=== PATIENT | female | born 1945 | race Asian ===

== ENCOUNTER 2022-07-14 10:03 | Observation (INO) | payer OTHER ==
[~2022-07-14] VITALS: Ht 157.5 cm; Wt 48.7 kg
[2022-07-14] MEDS ORDERED: AMAN100T PO (10:12)
[2022-07-14] MEDS ORDERED: ECOT81TA5 PO (10:12)
[2022-07-14] MEDS ORDERED: [UNRECOGNIZED DRUG - OTHER] (10:12)
[2022-07-14] MEDS ORDERED: ATOR1TAB19 PO (10:12)
[2022-07-14] MEDS ORDERED: NS 1,000 ML IV ONE (10:25)
[2022-07-14 10:59] LABS: VENOUS BASE EXCESS 0.6 (-2.0-2.0); VENOUS HCO3 25.4 MEQ/L (23.0-27.0); VENOUS O2 SATURATION 80.7 % (60.0-80.0); VENOUS PARTIAL PRESSURE CO2 41.6 mmHg (38.0-50.0); VENOUS PARTIAL PRESSURE O2 46.4 mmHg (30.0-50.0); VENOUS PH 7.404 UNITS (7.330-7.430); VENOUS STANDARD HCO3 24.6 MEQ/L; VENOUS TOTAL CO2 26.7 MEQ/L (24.0-28.0)
[2022-07-14 11:23] LABS: HEMOGLOBIN 13.9 g/dl (12.0-15.5); MEAN CORPUSCULAR HEMOGLOBIN 32.5 pg (27.0-33.0); MEAN CORPUSCULAR HGB CONC 33.9 g/dl (32.0-36.5); MEAN CORPUSCULAR VOLUME 95.8 fl (80.0-96.0); PLATELET COUNT, AUTOMATED 177 10^3/uL (150-450); RED BLOOD COUNT 4.28 10^6/uL (4.00-5.40); WHITE BLOOD COUNT 5.5 10^3/uL (4.0-10.0)
[2022-07-14] MEDS ORDERED: SERO1TAB3 PO (11:26)
[2022-07-14 11:36] LABS: OSMOLALITY SERUM 279 MOSM/KG (280-301)
[2022-07-14 11:40] LABS: THYROID STIMULATING HORMONE 1.622 uIU/ML (0.55-4.78)
[2022-07-14 11:54] LABS: RSV AMPLIFICATION NEGATIVE (NEGATIVE)
[2022-07-14 11:57] LABS: ALBUMIN 3.2 G/DL (3.2-5.2); ALKALINE PHOSPHATASE 139 U/L (46-116); ALT/SGPT 14 U/L (7.0-40); AST/SGOT 19 U/L (<34); BILIRUBIN,DIRECT 1.3 MG/DL (<0.4); BILIRUBIN,TOTAL 2.7 MG/DL (0.3-1.2); BLOOD UREA NITROGEN 14 MG/DL (9-23); CALCIUM LEVEL 7.9 MG/DL (8.3-10.6); CARBON DIOXIDE LEVEL 28 MMOL/L (20-31); CHLORIDE LEVEL 101 MMOL/L (98-107); CREATININE FOR GFR 0.66 MG/DL (0.55-1.30); GLOMERULAR FILTRATION RATE > 60.0 (>39); GLUCOSE, FASTING 105 MG/DL (74-106); POTASSIUM SERUM 2.9 MMOL/L (3.5-5.1); SODIUM LEVEL 136 MMOL/L (136-145); TOTAL PROTEIN 6.7 G/DL (5.7-8.2)
[2022-07-14] MEDS ORDERED: POTASSIUM CHLORIDE 10MEQ SR TABLET PO ONE ×2 (12:00→20:30)
[2022-07-14 12:10] LABS: EOSINOPHILS 11 % (0-3); LYMPHOCYTES 22 % (16-44); MONOCYTES 8 % (0-5); NEUTROPHILS 56 % (28-66)
[2022-07-14 12:14] LABS: PLATELET ESTIMATE NORMAL (NORMAL)
[2022-07-14 12:15] LABS: MAGNESIUM LEVEL 1.6 MG/DL (1.8-2.4)
[2022-07-14] MEDS ORDERED: MAG SULF 1GM/100ML (MAG RUN) 1 GM in IV 1 EA IV ONE (14:05)
[2022-07-14] MEDS ORDERED: ISOVUE-370 76% 100ML VIAL As Ordered ONE (14:33)
[2022-07-14] MEDS ORDERED: FLUD0.1T PO (16:04)
[2022-07-14] MEDS ORDERED: HOME MED LIST COMPLETE! XX SCH (16:05)
[2022-07-14] MEDS ORDERED: NS 1,000 ML IV SCH ×2 (16:05→16:50)
[2022-07-14] MEDS ORDERED: ACETAMINOPHEN TAB 650MG DOSE (2X325MG) PO PRN (16:50)
[2022-07-14] MEDS ORDERED: **hydrALAZINE** 10 MG TAB PO PRN (16:50)
[2022-07-14] MEDS ORDERED: ONDANSETRON 4MG 2ML VIAL IV PRN (17:05)
[2022-07-14] MEDS ORDERED: QUEtiapine FUMARATE 12.5 MG HALF-TAB PO PRN (17:05)
[2022-07-14] MEDS: ONDANSETRON 4MG 2ML VIAL IV SCH ×2 (18:14→23:33)
[2022-07-14 20:25] VITALS: BP 153/88
[2022-07-14] MEDS: AMANTADINE 100MG TABLET PO SCH (20:57)
[2022-07-14] MEDS: PANTOPRAZOLE 40MG VIAL IV SCH (20:57)
[2022-07-14 23:43] LABS: MAGNESIUM LEVEL 2.1 MG/DL (1.8-2.4); POTASSIUM SERUM 3.6 MMOL/L (3.5-5.1)
[2022-07-15] MEDS: ONDANSETRON 4MG 2ML VIAL IV SCH (05:00)
[2022-07-15] MEDS ORDERED: CIPROFLOXACIN 500MG TABLET PO SCH (06:00)
[2022-07-15 06:54] LABS: HEMATOCRIT 32.7 % (36.0-47.0); MEAN CORPUSCULAR HEMOGLOBIN 32.8 pg (27.0-33.0); MEAN CORPUSCULAR HGB CONC 33.9 g/dl (32.0-36.5); MEAN CORPUSCULAR VOLUME 96.7 fl (80.0-96.0); PLATELET COUNT, AUTOMATED 144 10^3/uL (150-450); RED BLOOD COUNT 3.38 10^6/uL (4.00-5.40)
[2022-07-15 06:55] VITALS: BP 154/86
[2022-07-15 06:55] LABS: HEMOGLOBIN 11.1 g/dl (12.0-15.5)
[2022-07-15 07:14] LABS: ALBUMIN 2.5 G/DL (3.2-5.2); ALKALINE PHOSPHATASE 113 U/L (46-116); ALT/SGPT 12 U/L (7.0-40); AST/SGOT 15 U/L (<34); BILIRUBIN,TOTAL 2.3 MG/DL (0.3-1.2); BLOOD UREA NITROGEN 9 MG/DL (9-23); CALCIUM LEVEL 7.4 MG/DL (8.3-10.6); CARBON DIOXIDE LEVEL 26 MMOL/L (20-31); CHLORIDE LEVEL 107 MMOL/L (98-107); CREATININE FOR GFR 0.54 MG/DL (0.55-1.30); GLOMERULAR FILTRATION RATE > 60.0 (>39); GLUCOSE, FASTING 78 MG/DL (74-106); MAGNESIUM LEVEL 1.8 MG/DL (1.8-2.4); SODIUM LEVEL 139 MMOL/L (136-145); TOTAL PROTEIN 5.3 G/DL (5.7-8.2)
[2022-07-15] MEDS: PANTOPRAZOLE 40MG VIAL IV SCH (08:09)
[2022-07-15] MEDS: AMANTADINE 100MG TABLET PO SCH (08:09)
[2022-07-15] MEDS ORDERED: CYANOCOBALAMIN 500 MCG TAB PO SCH (09:00)
[2022-07-15] MEDS ORDERED: CYANOCOBALAMIN 1,000MCG/ML 1ML VIAL IM SCH (09:00)
[2022-07-15] MEDS ORDERED: ASPIRIN 81MG ENTERIC TABLET PO SCH (09:00)
[2022-07-15] MEDS ORDERED: ATORVASTATIN 10 MG TAB PO SCH (09:00)
[2022-07-15] MEDS ORDERED: CIPR-249 PO (11:18)
== END 2022-07-15 13:00 | disposition home or self-care (01) ==
LOC: M ED 10:03 → M ED INP 16:50 → M MSPAV 20:25
PROVIDERS: ADMIT Family Medicine; ATTEND Family Medicine
DX: R11.10 Vomiting, unspecified (principal); R19.7 Diarrhea, unspecified; G20 Parkinson's disease; Z86.73 Personal history of transient ischemic attack (TIA), and cerebral infarction without residual deficits; E87.6 Hypokalemia; E83.42 Hypomagnesemia; Z79.82 Long term (current) use of aspirin; Z79.899 Other long term (current) drug therapy
CPT/HCPCS: 36415; 70450; 71045; 72125; 74177; 76705; 80048; 80053; 80076; 82140; 82607; 82803; 83605; 83735; 83930; 84132; 84443; 85025; 85027; 87040; 87507; 87631; 93005; 93041; 94760; 96361; 96372; 96374; 96375; 96376; 99285; C9113; J2405; J3420; J3475; Q9967